=== PATIENT | male | born 1935 | race Two or more races ===

== ENCOUNTER 2017-05-02 08:04 | Emergency (ER) | payer OTHER ==
[~2017-05-02] VITALS: Ht 154.9 cm; Wt 78.5 kg
[2017-05-02] MEDS ORDERED: SODIUM CHLORIDE 0.9% 1,000 ML IV ONE (08:24)
[2017-05-02] MEDS ORDERED: DOCUSATE SOD 100 MG CAP PO ONE (08:45)
[2017-05-02 09:11] LABS: Basophils # (auto) 0 uL; Basophils % (auto) 0.5 % (0.0-2.0); Eosinophils # (auto) 0.1 uL; Eosinophils % (auto) 0.6 % (0.0-7.0); Hematocrit 39.4 % (41.0-53.0); Hemoglobin 13.1 g/dL (13.5-17.5); Lymphocytes # (auto) 1.5 uL; Lymphocytes % (auto) 14.2 % (10.0-50.0); Mean Corpuscular Hemoglobin 28.1 pg (28.0-32.0); Mean Corpuscular Hgb Conc. 33.3 g/dL (32.0-36.0); Mean Corpuscular Volume 84.5 fL (80.0-100.0); Mean Platelet Volume 8.3 fL (6.9-10.8); Monocytes # (auto) 1.4 uL; Monocytes % (auto) 13.3 % (0.0-12.0); Neutrophils # (auto) 7.4 uL; Neutrophils % (auto) 71.4 % (37.0-80.0); Platelet Count (auto) 202 10^3/uL (140-450); Red Cell Distribution Width 14.5 % (11.8-14.3); White Blood Cell 10.3 10^3/uL (4.4-10.8)
[2017-05-02 09:27] LABS: INR 0.97 (0.9-1.15); Partial Thromboplastin Time 30.4 sec (22.64-33.71); Prothrombin Time 10.6 sec (9.37-12.3)
[2017-05-02 09:28] LABS: Albumin 3.2 g/dL (3.4-5.0); Anion Gap 6 (5-15); Aspartate Aminotransferase 13 U/L (15-37); BUN/Creatinine Ratio 21.7; Blood Urea Nitrogen 15 mg/dL (7-18); Calcium 8.1 mg/dL (8.5-10.1); Carbon Dioxide 29 mmol/L (21-32); Chloride 103 mmol/L (98-107); GFR African American 142 mL/min; GFR Non-African American 118 mL/min; Glucose 93 mg/dL (74-106); Potassium 3.7 mmol/L (3.5-5.1); Sodium 138 mmol/L (136-145)
[2017-05-02 09:36] LABS: Alkaline Phosphatase 76 U/L (45-117)
[2017-05-02 09:57] VITALS: BP 127/70
== END 2017-05-02 09:52 | disposition home or self-care (01) ==
LOC: ER 08:04
DX: K59.00 Constipation, unspecified (principal); I11.0 Hypertensive heart disease with heart failure; I50.9 Heart failure, unspecified; Z88.0 Allergy status to penicillin
CPT/HCPCS: 36415; 71010; 74176; 80053; 84484; 85025; 85610; 85730; 93005

== ENCOUNTER 2017-05-29 10:47 | Emergency (ER) | payer OTHER ==
[~2017-05-29] VITALS: Ht 154.9 cm; Wt 78.5 kg
[2017-05-29 11:36] VITALS: BP 113/68
== END 2017-05-29 12:07 | disposition home or self-care (01) ==
LOC: ER 10:47
DX: J20.9 Acute bronchitis, unspecified (principal); I11.0 Hypertensive heart disease with heart failure; I50.9 Heart failure, unspecified; E78.5 Hyperlipidemia, unspecified
CPT/HCPCS: 71020

== ENCOUNTER 2017-06-15 10:39 | Inpatient (IN) | payer OTHER ==
[~2017-06-15] VITALS: Ht 154.9 cm; Wt 81.0 kg
[2017-06-15] MEDS ORDERED: IPRATROPIUM BROM 0.5 MG/2.5ML INH SOL HHN ONE (11:00)
[2017-06-15] MEDS ORDERED: ALBUTEROL SULF 2.5 MG/0.5ML(0.5%) NEB SOLN HHN ONE (11:00)
[2017-06-15 11:15] LABS: Basophils # (auto) 0 uL; Basophils % (auto) 0.5 % (0.0-2.0); Eosinophils # (auto) 0.6 uL; Eosinophils % (auto) 8.4 % (0.0-7.0); Hematocrit 40.8 % (41.0-53.0); Hemoglobin 13.1 g/dL (13.5-17.5); Lymphocytes % (auto) 28.1 % (10.0-50.0); Mean Corpuscular Hgb Conc. 32.1 g/dL (32.0-36.0); Monocytes # (auto) 0.6 uL; Monocytes % (auto) 8.9 % (0.0-12.0); Neutrophils # (auto) 3.9 uL; Neutrophils % (auto) 54.1 % (37.0-80.0); Nucleated Red Blood Cells % 0.1 %; Platelet Count (auto) 309 10^3/uL (140-450); Red Blood Cells 4.86 10^6/uL (4.5-5.90); Red Cell Distribution Width 15.1 % (11.8-14.3); White Blood Cell 7.1 10^3/uL (4.4-10.8)
[2017-06-15] MEDS ORDERED: methylPREDNISolone SOD SUCC 125 MG/2 ML VL IV ONE (11:15)
[2017-06-15 11:35] LABS: Alanine Aminotransferase 20 U/L (16-61); Albumin 3.5 g/dL (3.4-5.0); Alkaline Phosphatase 108 U/L (45-117); Anion Gap 11 (5-15); Aspartate Aminotransferase 14 U/L (15-37); BUN/Creatinine Ratio 23.9; Bilirubin, Total 0.4 mg/dL (0.2-1.0); Blood Urea Nitrogen 21 mg/dL (7-18); Calcium 8.2 mg/dL (8.5-10.1); Carbon Dioxide 26 mmol/L (21-32); Chloride 102 mmol/L (98-107); GFR African American 107 mL/min; GFR Non-African American 89 mL/min; Glucose 132 mg/dL (74-106); Magnesium 1.9 mg/dL (1.6-2.6); Sodium 139 mmol/L (136-145); Total Protein 7.7 g/dL (6.4-8.2)
[2017-06-15] MEDS ORDERED: NITROGLYCERIN 0.4 MG SL TAB SL PRN (12:15)
[2017-06-15] MEDS ORDERED: AZITHROMYCIN 500MG/ 250ML 250 ML IV ONE ×2 (12:15→12:18)
[2017-06-15] MEDS ORDERED: cefTRIAXone 1GM/50ML D5W 50 ML IV ONE (12:15)
[2017-06-15] MEDS ORDERED: MORPHINE SULFATE 10 MG/ML INJ 1ML SDV IV PRN (12:15)
[2017-06-15] MEDS: SODIUM CHLORIDE 0.9% 1,000 ML IV SCH (12:59)
[2017-06-15] MEDS: IPRATROPIUM BROM 0.5 MG/2.5ML INH SOL NEB SCH ×3 (14:08→22:17)
[2017-06-15] MEDS: ALBUTEROL SULF 2.5 MG/0.5ML(0.5%) NEB SOLN NEB SCH ×3 (14:09→22:17)
[2017-06-15 14:20] VITALS: BP 139/61
[2017-06-15] MEDS ORDERED: IOHEXOL 350 MG/ML 100ML IJ ONE (15:43)
[2017-06-15 17:15] VITALS: BP 149/99
[2017-06-15 18:57] VITALS: BP 149/99
[2017-06-15] MEDS: methylPREDNISolone SOD SUCC 40 MG/ML VL IV SCH (19:05)
[2017-06-15 20:00] VITALS: BP 139/78
[2017-06-15 22:00] VITALS: BP 139/78
[2017-06-16] MEDS: methylPREDNISolone SOD SUCC 40 MG/ML VL IV SCH ×2 (02:20→10:52)
[2017-06-16] MEDS: IPRATROPIUM BROM 0.5 MG/2.5ML INH SOL NEB SCH ×3 (02:27→10:15)
[2017-06-16] MEDS: ALBUTEROL SULF 2.5 MG/0.5ML(0.5%) NEB SOLN NEB SCH ×3 (02:27→10:15)
[2017-06-16 05:45] VITALS: BP 149/89
[2017-06-16 06:07] LABS: Basophils # (auto) 0 uL; Basophils % (auto) 0.1 % (0.0-2.0); Eosinophils # (auto) 0 uL; Hematocrit 38.8 % (41.0-53.0); Hemoglobin 12.4 g/dL (13.5-17.5); Lymphocytes # (auto) 0.9 uL; Lymphocytes % (auto) 6.8 % (10.0-50.0); Mean Corpuscular Hemoglobin 26.6 pg (28.0-32.0); Mean Corpuscular Hgb Conc. 32.1 g/dL (32.0-36.0); Mean Corpuscular Volume 83.1 fL (80.0-100.0); Monocytes # (auto) 0.4 uL; Monocytes % (auto) 2.8 % (0.0-12.0); Neutrophils # (auto) 11.8 uL; Neutrophils % (auto) 90.3 % (37.0-80.0); Platelet Count (auto) 309 10^3/uL (140-450); Red Blood Cells 4.67 10^6/uL (4.5-5.90); Red Cell Distribution Width 14.8 % (11.8-14.3)
[2017-06-16 06:22] LABS: BUN/Creatinine Ratio 27.7; Calcium 8.7 mg/dL (8.5-10.1)
[2017-06-16] MEDS: SODIUM CHLORIDE 0.9% 1,000 ML IV SCH (06:57)
[2017-06-16 08:00] VITALS: BP 146/89
[2017-06-16 09:00] VITALS: BP 146/89
[2017-06-16 09:59] VITALS: BP 146/89
[2017-06-16] MEDS ORDERED: cefTRIAXone 1GM/50ML D5W 50 ML IV SCH (10:00)
[2017-06-16] MEDS ORDERED: AZITHROMYCIN 500MG/ 250ML 250 ML IV SCH (10:00)
[2017-06-16 13:00] VITALS: BP 149/81
== END 2017-06-16 15:35 | disposition home or self-care (01) | DRG 203 ==
LOC: ER 10:39 → TELE 10:40 → TELE-WESTW 17:25
PROVIDERS: ADMIT Internal Medicine; ATTEND Internal Medicine
DX: J20.9 Acute bronchitis, unspecified (principal); I11.0 Hypertensive heart disease with heart failure; I50.9 Heart failure, unspecified; J44.9 Chronic obstructive pulmonary disease, unspecified; E78.5 Hyperlipidemia, unspecified; K21.9 Gastro-esophageal reflux disease without esophagitis; I70.8 Atherosclerosis of other arteries
CPT/HCPCS: 36415; 71010; 71275; 80048; 80053; 83735; 83880; 84484; 85025; 93005; 94640; 94644; 94761; 96365; 96366; 96375; J0696

== ENCOUNTER 2018-11-08 12:48 | Inpatient (IN) | payer OTHER ==
[~2018-11-08] VITALS: Ht 170.2 cm; Wt 93.0 kg
[2018-11-08 14:04] LABS: Basophils # (auto) 0 uL; Basophils % (auto) 0.2 % (0.0-2.0); Eosinophils # (auto) 0 uL; Eosinophils % (auto) 0.1 % (0.0-7.0); Lymphocytes # (auto) 0.8 uL
[2018-11-08 14:05] LABS: Hematocrit 31.8 % (41.0-53.0); Hemoglobin 10.1 g/dL (13.5-17.5); Lymphocytes % (auto) 4.8 % (10.0-50.0); Mean Corpuscular Hemoglobin 26.7 pg (28.0-32.0); Mean Corpuscular Hgb Conc. 31.8 g/dL (32.0-36.0); Monocytes % (auto) 11.6 % (0.0-12.0); Neutrophils # (auto) 14.1 uL; Neutrophils % (auto) 83.3 % (37.0-80.0); Platelet Count (auto) 498 10^3/uL (140-450); Red Blood Cells 3.79 10^6/uL (4.5-5.90); Red Cell Distribution Width 14.5 % (11.8-14.3); White Blood Cell 16.9 10^3/uL (4.4-10.8)
[2018-11-08 14:19] LABS: Calcium 7.7 mg/dL (8.5-10.1); Magnesium 2.1 mg/dL (1.6-2.6); Potassium 4.3 mmol/L (3.5-5.1)
[2018-11-08 14:25] LABS: Bilirubin, Total 0.3 mg/dL (0.2-1.0); Total Protein 6.7 g/dL (6.4-8.2)
[2018-11-08 15:43] LABS: INR 1.19 (0.9-1.15); Partial Thromboplastin Time 35.9 sec (23.78-33.04); Prothrombin Time 12.6 sec (9.27-12.13)
[2018-11-08] MEDS ORDERED: IOHEXOL 350 MG/ML 100ML IJ ONE (16:14)
[2018-11-08] MEDS ORDERED: cefTRIAXone 1GM/50ML D5W 50 ML IV ONE (16:15)
[2018-11-08 16:30] LABS: Urine Bacteria NONE SEEN /hpf (None Seen); Urine Blood Negative /uL (Negative); Urine Specific Gravity 1.023 (1.001-1.035); Urine WBC 1 /hpf (0 - 3)
[2018-11-08] MEDS ORDERED: SODIUM CHLORIDE 0.9% 1,000 ML IV ONE (16:45)
[2018-11-08] MEDS ORDERED: NITROGLYCERIN 0.4 MG SL TAB SL PRN (17:00)
[2018-11-08] MEDS ORDERED: VANCOMYCIN PER PHARMACY 0 MG IV SCH (17:00)
[2018-11-08] MEDS ORDERED: FUROSEMIDE 40 MG/4 ML VIAL IV ONE (17:15)
[2018-11-08] MEDS: ACETAMINOPHEN 650 MG RECT SUPP PR PRN ×2 (18:11→20:30)
[2018-11-08] MEDS ORDERED: ETOMIDATE (2MG/ML) 20ML VIAL IV ONE (18:30)
[2018-11-08] MEDS ORDERED: SUCCINYLCHOLINE CHLORIDE 20 MG/ML 10ML VIAL IV ONE ×2 (18:30→18:32)
[2018-11-08] MEDS ORDERED: MIDAZOLAM DRIP 50 mg/50mL 50 ML IV ONE (19:02)
[2018-11-08 19:33] VITALS: BP 95/58
[2018-11-08] MEDS: MIDAZOLAM DRIP 50 mg/50mL 50 ML IV SCH (19:35)
[2018-11-08] MEDS: VANCOMYCIN 1,250 MG in D5W 5% 250 ML IV SCH (19:38)
[2018-11-08 22:05] VITALS: BP 81/46
[2018-11-08] MEDS ORDERED: NOREPINEPHRINE 8 MG/250ML KIT 250 ML IV STA (22:19)
[2018-11-08 23:35] VITALS: BP 92/54
[2018-11-09] VITALS (11 sets, daily range): BP systolic 91–117; BP diastolic 57–69
[2018-11-09] MEDS: ACETAMINOPHEN 650 MG RECT SUPP PR PRN (04:39)
[2018-11-09 05:55] LABS: Eosinophils # (auto) 0.1 uL; Hemoglobin 9.9 g/dL (13.5-17.5); Mean Corpuscular Volume 84.5 fL (80.0-100.0); Monocytes # (auto) 1.5 uL; Nucleated Red Blood Cells % 0.1 %
[2018-11-09] MEDS: MIDAZOLAM DRIP 50 mg/50mL 50 ML IV SCH (05:55)
[2018-11-09 06:00] LABS: Basophils # (auto) 0 uL; Basophils % (auto) 0.1 % (0.0-2.0); Eosinophils % (auto) 0.7 % (0.0-7.0); Hematocrit 31.3 % (41.0-53.0); Lymphocytes # (auto) 1.3 uL; Mean Corpuscular Hemoglobin 26.7 pg (28.0-32.0); Mean Corpuscular Hgb Conc. 31.6 g/dL (32.0-36.0); Monocytes % (auto) 8.4 % (0.0-12.0); Neutrophils # (auto) 15.2 uL; Neutrophils % (auto) 83.8 % (37.0-80.0); Platelet Count (auto) 485 10^3/uL (140-450); Red Cell Distribution Width 14.7 % (11.8-14.3); White Blood Cell 18.1 10^3/uL (4.4-10.8)
[2018-11-09 06:13] LABS: Calcium 7.6 mg/dL (8.5-10.1); Potassium 3.4 mmol/L (3.5-5.1)
[2018-11-09] MEDS ORDERED: LEVOFLOXACIN 500MG 100 ML IV ONE ×2 (10:00→11:45)
[2018-11-09] MEDS: VANCOMYCIN 1,250 MG in D5W 5% 250 ML IV SCH (12:59)
[2018-11-09] MEDS ORDERED: ACETAMINOPHEN 650 mg PER 20 mL UD PO ONE (14:30)
[2018-11-10] VITALS (21 sets, daily range): BP systolic 68–133; BP diastolic 44–87
[2018-11-10] MEDS: MIDAZOLAM DRIP 50 mg/50mL 50 ML IV SCH ×2 (01:14→22:56)
[2018-11-10] MEDS: VANCOMYCIN 1,250 MG in D5W 5% 250 ML IV SCH (06:00)
[2018-11-10] MEDS ORDERED: NOREPINEPHRINE 8 MG/250ML KIT 250 ML IV ONE (06:26)
[2018-11-10 07:32] LABS: Potassium 3.9 mmol/L (3.5-5.1)
[2018-11-10 07:39] LABS: BUN/Creatinine Ratio 21.4; Calcium 7.2 mg/dL (8.5-10.1)
[2018-11-10 07:44] LABS: Hematocrit 33.5 % (41.0-53.0); Hemoglobin 10.7 g/dL (13.5-17.5); Mean Corpuscular Hemoglobin 26.4 pg (28.0-32.0); Mean Corpuscular Volume 82.6 fL (80.0-100.0); Platelet Count (auto) 414 10^3/uL (140-450); Red Blood Cells 4.05 10^6/uL (4.5-5.90); Red Cell Distribution Width 14.7 % (11.8-14.3)
[2018-11-10 07:48] LABS: White Blood Cell 30.4 10^3/uL (4.4-10.8)
[2018-11-10 07:50] LABS: Basophils % (manual) 0 (0.0-2.0); Blast Cells 0; Eosinophils % (manual) 0 (0-7); Metamyelocytes % 0; Myelocytes % 0; Promyelocytes % 0; Reactive Lymphocytes 0
[2018-11-10] MEDS: NOREPINEPHRINE 8 MG/250ML KIT 250 ML IV SCH (08:00)
[2018-11-10] MEDS ORDERED: CEFEPIME HYDROCHLORIDE 1 GM in D5W 5% 50 ML IV ONE (09:00)
[2018-11-10] MEDS: ACETAMINOPHEN 650 mg PER 20 mL UD PO PRN ×2 (09:16→17:57)
[2018-11-10 09:49] LABS: Band Neutrophils % (manual) 8; Lymphocytes % (manual) 7 (10.0-50.0); Monocytes % (manual) 12 (0-12)
[2018-11-10] MEDS ORDERED: LEVOFLOXACIN 500MG 100 ML IV SCH (10:00)
[2018-11-10] MEDS: LEVOFLOXACIN 500MG 100 ML IV SCH (10:42)
[2018-11-10] MEDS ORDERED: ENOXAPARIN SOD 40 MG/0.4 ML SYRINGE SC ONE (11:30)
[2018-11-10] MEDS ORDERED: SODIUM CHLORIDE 0.9% 2,450 ML IV ONE (11:30)
[2018-11-10] MEDS: ENOXAPARIN SOD 40 MG/0.4 ML SYRINGE SC SCH (11:43)
[2018-11-10] MEDS: IPRATROPIUM BROM 0.5 MG/2.5ML INH SOL NEB SCH ×2 (11:58→21:31)
[2018-11-10] MEDS: ALBUTEROL SULF 2.5 MG/0.5ML(0.5%) NEB SOLN NEB SCH ×2 (11:58→21:32)
[2018-11-10] MEDS ORDERED: CEFEPIME HYDROCHLORIDE 1 GM in D5W 5% 50 ML IV SCH ×2 (12:00→14:00)
[2018-11-10] MEDS: FUROSEMIDE 40 MG/4 ML VIAL IV SCH (12:02)
[2018-11-10] MEDS: metroNIDAZOLE 500MG/100ML 100 ML IV SCH ×2 (12:06→18:18)
[2018-11-10] MEDS: VANCOMYCIN HCL 500MG/5ML ORAL SOL GT SCH ×2 (12:57→18:34)
[2018-11-10 13:19] LABS: Hemoglobin 11.2 g/dL (13.5-17.5); Mean Corpuscular Volume 84.2 fL (80.0-100.0)
[2018-11-10 13:22] LABS: Hematocrit 35.3 % (41.0-53.0); Mean Corpuscular Hemoglobin 26.6 pg (28.0-32.0); Mean Corpuscular Hgb Conc. 31.6 g/dL (32.0-36.0); Platelet Count (auto) 409 10^3/uL (140-450); Red Blood Cells 4.19 10^6/uL (4.5-5.90); White Blood Cell 24.7 10^3/uL (4.4-10.8)
[2018-11-10 13:35] LABS: Basophils % (manual) 0 (0.0-2.0); Blast Cells 0; Eosinophils % (manual) 0 (0-7); Metamyelocytes % 0; Myelocytes % 0; Promyelocytes % 0; Reactive Lymphocytes 0
[2018-11-10 13:38] LABS: BUN/Creatinine Ratio 20.7; Calcium 7.6 mg/dL (8.5-10.1)
[2018-11-10 13:40] LABS: Lactic Acid w/Reflex 2.3 mmol/L (0.4-2.0)
[2018-11-10] MEDS: SODIUM CHLORIDE 0.9% 1,000 ML IV SCH ×3 (15:32→21:35)
[2018-11-10 18:07] LABS: Band Neutrophils % (manual) 5; Lymphocytes % (manual) 7 (10.0-50.0); Monocytes % (manual) 8 (0-12)
[2018-11-11] VITALS (97 sets, daily range): BP systolic 77–141; BP diastolic 38–98
[2018-11-11] MEDS: IPRATROPIUM BROM 0.5 MG/2.5ML INH SOL NEB SCH ×4 (00:50→17:53)
[2018-11-11] MEDS: ALBUTEROL SULF 2.5 MG/0.5ML(0.5%) NEB SOLN NEB SCH ×4 (00:50→17:53)
[2018-11-11] MEDS: metroNIDAZOLE 500MG/100ML 100 ML IV SCH ×4 (00:57→18:00)
[2018-11-11] MEDS: VANCOMYCIN HCL 500MG/5ML ORAL SOL GT SCH ×4 (00:57→18:00)
[2018-11-11] MEDS: VANCOMYCIN 1,250 MG in D5W 5% 250 ML IV SCH ×2 (00:58→12:22)
[2018-11-11] MEDS: NOREPINEPHRINE 8 MG/250ML KIT 250 ML IV SCH ×3 (02:21→16:12)
[2018-11-11] MEDS: MIDAZOLAM DRIP 50 mg/50mL 50 ML IV SCH ×2 (03:01→21:32)
[2018-11-11] MEDS: ACETAMINOPHEN 650 mg PER 20 mL UD PO PRN ×3 (03:02→16:17)
[2018-11-11 04:00] LABS: Albumin 1.5 g/dL (3.4-5.0)
[2018-11-11 04:03] LABS: BUN/Creatinine Ratio 20.3; Bilirubin, Total 0.6 mg/dL (0.2-1.0); Total Protein 5.7 g/dL (6.4-8.2)
[2018-11-11 04:06] LABS: Hematocrit 31.7 % (41.0-53.0); Mean Corpuscular Hemoglobin 26.6 pg (28.0-32.0); Mean Corpuscular Hgb Conc. 31.7 g/dL (32.0-36.0); Platelet Count (auto) 395 10^3/uL (140-450); Red Blood Cells 3.77 10^6/uL (4.5-5.90); Red Cell Distribution Width 14.8 % (11.8-14.3)
[2018-11-11 04:23] LABS: Potassium 2.6 mmol/L (3.5-5.1)
[2018-11-11 04:24] LABS: Basophils % (manual) 0 (0.0-2.0); Blast Cells 0; Metamyelocytes % 0; Myelocytes % 0; Promyelocytes % 0; Reactive Lymphocytes 0; White Blood Cell 33.3 10^3/uL (4.4-10.8)
[2018-11-11 06:48] LABS: Band Neutrophils % (manual) 15; Eosinophils % (manual) 1 (0-7); Lymphocytes % (manual) 2 (10.0-50.0); Monocytes % (manual) 4 (0-12)
[2018-11-11] MEDS: SODIUM CHLORIDE 0.9% 1,000 ML IV SCH ×3 (07:30→12:22)
[2018-11-11] MEDS: ENOXAPARIN SOD 40 MG/0.4 ML SYRINGE SC SCH ×2 (10:00)
[2018-11-11] MEDS: LEVOFLOXACIN 500MG 100 ML IV SCH (10:00)
[2018-11-11] MEDS: FUROSEMIDE 40 MG/4 ML VIAL IV SCH (10:00)
[2018-11-11] MEDS ORDERED: POTASSIUM CHLORIDE 40 MEQ, LIDOCAINE 1% (LOCAL ANESTH.) 4 ML in SODIUM CHL 0.9% 100 ML IV ONE (10:30)
[2018-11-11] MEDS: MAGNESIUM SULFATE 1GM/100ML 100 ML IV SCH ×4 (11:00→14:00)
[2018-11-11] MEDS ORDERED: OPTISON 3ml Vial for INJ IV ONE ×2 (14:12→14:45)
[2018-11-11] MEDS: MORPHINE SULF INJ 2 MG/ML SYRINGE 1ML IV PRN (21:34)
[2018-11-12] VITALS (99 sets, daily range): BP systolic 91–170; BP diastolic 42–103
[2018-11-12] MEDS: ALBUTEROL SULF 2.5 MG/0.5ML(0.5%) NEB SOLN NEB SCH ×4 (00:12→18:14)
[2018-11-12] MEDS: IPRATROPIUM BROM 0.5 MG/2.5ML INH SOL NEB SCH ×4 (00:12→18:14)
[2018-11-12] MEDS: VANCOMYCIN 1,250 MG in D5W 5% 250 ML IV SCH ×2 (00:40→13:00)
[2018-11-12 04:01] LABS: Hemoglobin 9.9 g/dL (13.5-17.5)
[2018-11-12 04:05] LABS: Hematocrit 30.9 % (41.0-53.0); Mean Corpuscular Hemoglobin 26.8 pg (28.0-32.0); Mean Corpuscular Volume 83.8 fL (80.0-100.0); Platelet Count (auto) 332 10^3/uL (140-450); Red Blood Cells 3.69 10^6/uL (4.5-5.90); Red Cell Distribution Width 14.9 % (11.8-14.3)
[2018-11-12 04:42] LABS: White Blood Cell 37.7 10^3/uL (4.4-10.8)
[2018-11-12 04:43] LABS: Basophils % (manual) 0 (0.0-2.0); Blast Cells 0; Eosinophils % (manual) 0 (0-7); Myelocytes % 0; Promyelocytes % 0; Reactive Lymphocytes 0
[2018-11-12 04:52] LABS: BUN/Creatinine Ratio 18.3
[2018-11-12 05:26] LABS: Potassium 2.5 mmol/L (3.5-5.1)
[2018-11-12 05:44] LABS: Band Neutrophils % (manual) 13; Lymphocytes % (manual) 2 (10.0-50.0); Metamyelocytes % 1; Monocytes % (manual) 4 (0-12)
[2018-11-12] MEDS: metroNIDAZOLE 500MG/100ML 100 ML IV SCH ×4 (06:00→17:53)
[2018-11-12] MEDS: VANCOMYCIN HCL 500MG/5ML ORAL SOL GT SCH ×4 (06:00→17:53)
[2018-11-12] MEDS ORDERED: POTASSIUM CHLORIDE 40 MEQ, LIDOCAINE 1% (LOCAL ANESTH.) 4 ML in SODIUM CHL 0.9% 100 ML IV ONE (06:55)
[2018-11-12] MEDS: NOREPINEPHRINE 8 MG/250ML KIT 250 ML IV SCH (09:13)
[2018-11-12] MEDS: SODIUM CHLORIDE 0.9% 1,000 ML IV SCH ×2 (09:15→10:25)
[2018-11-12] MEDS: MORPHINE SULF INJ 2 MG/ML SYRINGE 1ML IV PRN ×3 (09:22→18:51)
[2018-11-12] MEDS: FUROSEMIDE 40 MG/4 ML VIAL IV SCH (10:25)
[2018-11-12] MEDS: ENOXAPARIN SOD 40 MG/0.4 ML SYRINGE SC SCH (10:25)
[2018-11-12] MEDS ORDERED: PANTOPRAZOLE 40 MG/10 ML VIAL IV ONE (12:45)
[2018-11-12] MEDS ORDERED: FUROSEMIDE 40 MG/4 ML VIAL IV ONE (13:30)
[2018-11-12] MEDS ORDERED: TPN PER PHARMACY 0 ML IV SCH (13:30)
[2018-11-12] MEDS ORDERED: IOHEXOL 300 MG/ML 100ML BOTTLE IJ ONE (14:04)
[2018-11-12] MEDS: POTASSIUM CHL 20MEQ/100ML 100 ML IV SCH ×2 (15:30→17:13)
[2018-11-12] MEDS ORDERED: POTASSIUM PHOSPHATE 22 MEQ in SODIUM CHL 0.9% 100 ML IV ONE (15:30)
[2018-11-12] MEDS ORDERED: PHENYLEPHRINE IV 0 ML IV ONE (16:32)
[2018-11-12] MEDS: CLINIMIX PER PHARMACY IV NR (20:00)
[2018-11-12] MEDS ORDERED: DEXTROSE (50%) 50ML SYRG IV SCH (20:00)
[2018-11-12] MEDS: InsuLIN REG 1unit/0.01ml Soln (100units/ml) SC SCH (22:30)
[2018-11-12] MEDS: ACCU-CHEK COMFORT CURVE STRIP VI SCH (22:30)
[2018-11-12] MEDS: ACETAMINOPHEN 650 mg PER 20 mL UD PO PRN (22:40)
[2018-11-13] VITALS (105 sets, daily range): BP systolic 81–140; BP diastolic 43–100
[2018-11-13] MEDS: ALBUTEROL SULF 2.5 MG/0.5ML(0.5%) NEB SOLN NEB SCH ×4 (00:20→18:18)
[2018-11-13] MEDS: metroNIDAZOLE 500MG/100ML 100 ML IV SCH ×4 (01:00→18:00)
[2018-11-13] MEDS: InsuLIN REG 1unit/0.01ml Soln (100units/ml) SC SCH ×4 (01:00→18:00)
[2018-11-13] MEDS: VANCOMYCIN HCL 500MG/5ML ORAL SOL GT SCH ×5 (01:00→22:28)
[2018-11-13] MEDS: ACCU-CHEK COMFORT CURVE STRIP VI SCH ×4 (01:00→18:00)
[2018-11-13] MEDS: VANCOMYCIN 1,250 MG in D5W 5% 250 ML IV SCH ×2 (02:00→12:57)
[2018-11-13] MEDS: MORPHINE SULF INJ 2 MG/ML SYRINGE 1ML IV PRN (02:43)
[2018-11-13 05:25] LABS: Hemoglobin 9.9 g/dL (13.5-17.5)
[2018-11-13 05:26] LABS: Hematocrit 30.8 % (41.0-53.0); Mean Corpuscular Hemoglobin 26.8 pg (28.0-32.0); Mean Corpuscular Volume 83.7 fL (80.0-100.0); Platelet Count (auto) 323 10^3/uL (140-450); Red Blood Cells 3.68 10^6/uL (4.5-5.90)
[2018-11-13 05:37] LABS: Albumin 1.4 g/dL (3.4-5.0); Calcium 7.2 mg/dL (8.5-10.1); Magnesium 2.1 mg/dL (1.6-2.6)
[2018-11-13 05:44] LABS: BUN/Creatinine Ratio 20.8; Bilirubin, Total 0.4 mg/dL (0.2-1.0); Phosphorus 2.2 mg/dL (2.5-4.90); Pre Albumin 3.3 mg/dL (20.0-40.0); Total Protein 5.2 g/dL (6.4-8.2)
[2018-11-13 05:49] LABS: Potassium 2.9 mmol/L (3.5-5.1); White Blood Cell 30.1 10^3/uL (4.4-10.8)
[2018-11-13 05:50] LABS: Basophils % (manual) 0 (0.0-2.0); Blast Cells 0; Eosinophils % (manual) 0 (0-7); Metamyelocytes % 0; Myelocytes % 0; Promyelocytes % 0; Reactive Lymphocytes 0
[2018-11-13] MEDS: IPRATROPIUM BROM 0.5 MG/2.5ML INH SOL NEB SCH ×3 (06:15→18:18)
[2018-11-13 06:52] LABS: Band Neutrophils % (manual) 8; Lymphocytes % (manual) 2 (10.0-50.0); Monocytes % (manual) 5 (0-12)
[2018-11-13] MEDS: POTASSIUM CHL 20MEQ/100ML 100 ML IV SCH ×3 (07:58→10:22)
[2018-11-13] MEDS: ACETAMINOPHEN 650 mg PER 20 mL UD PO PRN (08:52)
[2018-11-13] MEDS: PANTOPRAZOLE 40 MG/10 ML VIAL IV SCH (09:48)
[2018-11-13] MEDS: FUROSEMIDE 40 MG/4 ML VIAL IV SCH (09:48)
[2018-11-13] MEDS: ENOXAPARIN SOD 40 MG/0.4 ML SYRINGE SC SCH (09:49)
[2018-11-13] MEDS: PROPOFOL 100 ML IV SCH (11:23)
[2018-11-13] MEDS: MIDAZOLAM DRIP 50 mg/50mL 50 ML IV SCH (12:26)
[2018-11-13] MEDS ORDERED: POTASSIUM PHOSP 22MEQ(15MMOLE) in NS 100 ML IV ONE (14:00)
[2018-11-13] MEDS: AZTREONAM 1GM INJ 1 GM in D5W 5% 50 ML IV SCH ×2 (14:18→22:00)
[2018-11-13] MEDS: CLINIMIX PER PHARMACY IV NR (19:49)
[2018-11-13] MEDS ORDERED: FAT EMULSION IV NR ×10 (20:00)
[2018-11-13] MEDS ORDERED: POTASSIUM ACETATE IV NR ×10 (20:00)
[2018-11-13] MEDS ORDERED: POTASSIUM PHOSPHATE IV NR ×10 (20:00)
[2018-11-13] MEDS ORDERED: [UNRECOGNIZED DRUG - OTHER] IV NR ×10 (20:00)
[2018-11-14] VITALS (106 sets, daily range): BP systolic 80–141; BP diastolic 35–111
[2018-11-14] MEDS: IPRATROPIUM BROM 0.5 MG/2.5ML INH SOL NEB SCH ×5 (00:19→23:58)
[2018-11-14] MEDS: ALBUTEROL SULF 2.5 MG/0.5ML(0.5%) NEB SOLN NEB SCH ×5 (00:19→23:58)
[2018-11-14] MEDS: VANCOMYCIN 1,250 MG in D5W 5% 250 ML IV SCH ×2 (01:00→13:59)
[2018-11-14 03:42] LABS: Red Cell Distribution Width 15.4 % (11.8-14.3)
[2018-11-14 03:45] LABS: Hematocrit 29.9 % (41.0-53.0); Hemoglobin 9.6 g/dL (13.5-17.5); Mean Corpuscular Hemoglobin 26.8 pg (28.0-32.0); Mean Corpuscular Hgb Conc. 32.2 g/dL (32.0-36.0); Platelet Count (auto) 328 10^3/uL (140-450); White Blood Cell 23.9 10^3/uL (4.4-10.8)
[2018-11-14 03:52] LABS: Band Neutrophils % (manual) 0; Basophils % (manual) 0 (0.0-2.0); Blast Cells 0; Eosinophils % (manual) 0 (0-7); Metamyelocytes % 0; Myelocytes % 0; Promyelocytes % 0; Reactive Lymphocytes 0
[2018-11-14 04:02] LABS: Calcium 7.3 mg/dL (8.5-10.1); Potassium 3.1 mmol/L (3.5-5.1)
[2018-11-14 04:08] LABS: Albumin 1.4 g/dL (3.4-5.0); BUN/Creatinine Ratio 29.7; Bilirubin, Total 0.3 mg/dL (0.2-1.0); Phosphorus 2.5 mg/dL (2.5-4.90); Total Protein 5.2 g/dL (6.4-8.2)
[2018-11-14] MEDS: AZTREONAM 1GM INJ 1 GM in D5W 5% 50 ML IV SCH ×3 (05:40→22:00)
[2018-11-14] MEDS: ACCU-CHEK COMFORT CURVE STRIP VI SCH ×4 (05:41→17:37)
[2018-11-14] MEDS: InsuLIN REG 1unit/0.01ml Soln (100units/ml) SC SCH ×4 (05:41→17:37)
[2018-11-14] MEDS: metroNIDAZOLE 500MG/100ML 100 ML IV SCH ×4 (06:19→17:42)
[2018-11-14] MEDS: NOREPINEPHRINE 8 MG/250ML KIT 250 ML IV SCH (08:00)
[2018-11-14 08:55] LABS: Lymphocytes % (manual) 7 (10.0-50.0); Monocytes % (manual) 5 (0-12)
[2018-11-14] MEDS: FUROSEMIDE 40 MG/4 ML VIAL IV SCH (10:39)
[2018-11-14] MEDS: ENOXAPARIN SOD 40 MG/0.4 ML SYRINGE SC SCH (10:40)
[2018-11-14] MEDS: PANTOPRAZOLE 40 MG/10 ML VIAL IV SCH (10:40)
[2018-11-14] MEDS: ACETAMINOPHEN 650 mg PER 20 mL UD PO PRN ×2 (10:40→18:50)
[2018-11-14] MEDS: POTASSIUM CHL 20MEQ/100ML 100 ML IV SCH ×3 (10:40→22:00)
[2018-11-14] MEDS: PROPOFOL 100 ML IV SCH (11:23)
[2018-11-14] MEDS: VANCOMYCIN HCL 500MG/5ML ORAL SOL GT SCH ×3 (12:25→17:42)
[2018-11-14] MEDS: MIDAZOLAM DRIP 50 mg/50mL 50 ML IV SCH (18:59)
[2018-11-14] MEDS ORDERED: TPN PER PHARMACY IV NR ×10 (20:00)
[2018-11-15] VITALS (105 sets, daily range): BP systolic 71–148; BP diastolic 32–110
[2018-11-15] MEDS: POTASSIUM CHL 20MEQ/100ML 100 ML IV SCH
[2018-11-15] MEDS: VANCOMYCIN 1,250 MG in D5W 5% 250 ML IV SCH ×2 (01:00→12:43)
[2018-11-15 05:06] LABS: Basophils # (auto) 0 uL; Eosinophils # (auto) 0.4 uL; Eosinophils % (auto) 1.9 % (0.0-7.0); Hemoglobin 9.5 g/dL (13.5-17.5); Mean Corpuscular Hemoglobin 26.5 pg (28.0-32.0); Mean Corpuscular Hgb Conc. 32.2 g/dL (32.0-36.0)
[2018-11-15 05:07] LABS: Basophils % (auto) 0.1 % (0.0-2.0); Hematocrit 29.4 % (41.0-53.0); Lymphocytes % (auto) 5.3 % (10.0-50.0); Mean Corpuscular Volume 82.4 fL (80.0-100.0); Monocytes # (auto) 1.4 uL; Monocytes % (auto) 7.2 % (0.0-12.0); Neutrophils # (auto) 16.6 uL; Neutrophils % (auto) 85.5 % (37.0-80.0); Platelet Count (auto) 337 10^3/uL (140-450); Red Blood Cells 3.56 10^6/uL (4.5-5.90); Red Cell Distribution Width 15.3 % (11.8-14.3); White Blood Cell 19.4 10^3/uL (4.4-10.8)
[2018-11-15 05:27] LABS: Albumin 1.4 g/dL (3.4-5.0); BUN/Creatinine Ratio 30.4; Calcium 7.1 mg/dL (8.5-10.1); Magnesium 1.9 mg/dL (1.6-2.6); Potassium 3.6 mmol/L (3.5-5.1)
[2018-11-15 05:30] LABS: Bilirubin, Total 0.4 mg/dL (0.2-1.0); Phosphorus 2.9 mg/dL (2.5-4.90); Total Protein 5.1 g/dL (6.4-8.2)
[2018-11-15] MEDS: AZTREONAM 1GM INJ 1 GM in D5W 5% 50 ML IV SCH ×3 (05:33→21:55)
[2018-11-15] MEDS: InsuLIN REG 1unit/0.01ml Soln (100units/ml) SC SCH ×4 (06:00→17:32)
[2018-11-15] MEDS: ACCU-CHEK COMFORT CURVE STRIP VI SCH ×4 (06:00→17:32)
[2018-11-15] MEDS: VANCOMYCIN HCL 500MG/5ML ORAL SOL GT SCH ×4 (06:00→17:51)
[2018-11-15] MEDS: metroNIDAZOLE 500MG/100ML 100 ML IV SCH ×4 (06:20→17:51)
[2018-11-15] MEDS: ALBUTEROL SULF 2.5 MG/0.5ML(0.5%) NEB SOLN NEB SCH ×3 (07:43→18:41)
[2018-11-15] MEDS: IPRATROPIUM BROM 0.5 MG/2.5ML INH SOL NEB SCH ×3 (07:43→18:41)
[2018-11-15] MEDS: NOREPINEPHRINE 8 MG/250ML KIT 250 ML IV SCH (08:00)
[2018-11-15] MEDS ORDERED: POTASSIUM CHL 10% (20 MEQ/15ML) 15ml ORAL SOLN PO ONE (09:30)
[2018-11-15] MEDS: PANTOPRAZOLE 40 MG/10 ML VIAL IV SCH (09:51)
[2018-11-15] MEDS: ACETAMINOPHEN 650 mg PER 20 mL UD PO PRN ×2 (09:52→22:16)
[2018-11-15] MEDS: ENOXAPARIN SOD 40 MG/0.4 ML SYRINGE SC SCH (09:52)
[2018-11-15] MEDS: FUROSEMIDE 40 MG/4 ML VIAL IV SCH (09:52)
[2018-11-15] MEDS: PROPOFOL 100 ML IV SCH (11:23)
[2018-11-15] MEDS ORDERED: fentaNYL CITRATE 100 MCG/2 ML VL IV PRN (15:30)
[2018-11-15] MEDS: MIDAZOLAM DRIP 50 mg/50mL 50 ML IV SCH (18:59)
[2018-11-15] MEDS ORDERED: TPN PER PHARMACY IV NR ×22 (20:00)
[2018-11-15] MEDS ORDERED: DOBUTamine 1000MCG/ML 0 ML IV ONE (20:29)
[2018-11-16] VITALS (82 sets, daily range): BP systolic 37–131; BP diastolic 23–91
[2018-11-16] MEDS: IPRATROPIUM BROM 0.5 MG/2.5ML INH SOL NEB SCH ×4 (00:16→19:07)
[2018-11-16] MEDS: ALBUTEROL SULF 2.5 MG/0.5ML(0.5%) NEB SOLN NEB SCH ×4 (00:16→19:07)
[2018-11-16] MEDS: VANCOMYCIN 1,250 MG in D5W 5% 250 ML IV SCH ×2 (01:00→13:27)
[2018-11-16 04:25] LABS: Basophils # (auto) 0 uL; Eosinophils # (auto) 0.4 uL; Hemoglobin 8.9 g/dL (13.5-17.5)
[2018-11-16 04:32] LABS: Basophils % (auto) 0.2 % (0.0-2.0); Eosinophils % (auto) 2.3 % (0.0-7.0); Hematocrit 27.4 % (41.0-53.0); Lymphocytes % (auto) 6.1 % (10.0-50.0); Mean Corpuscular Hemoglobin 26.8 pg (28.0-32.0); Mean Corpuscular Hgb Conc. 32.5 g/dL (32.0-36.0); Mean Corpuscular Volume 82.5 fL (80.0-100.0); Monocytes # (auto) 1.4 uL; Monocytes % (auto) 8.1 % (0.0-12.0); Neutrophils # (auto) 14.2 uL; Neutrophils % (auto) 83.3 % (37.0-80.0); Nucleated Red Blood Cells % 0.1 %; Platelet Count (auto) 329 10^3/uL (140-450); Red Blood Cells 3.32 10^6/uL (4.5-5.90); Red Cell Distribution Width 15.2 % (11.8-14.3)
[2018-11-16 04:35] LABS: INR 1.12 (0.9-1.15); Partial Thromboplastin Time 29.3 sec (23.78-33.04); Prothrombin Time 11.9 sec (9.27-12.13)
[2018-11-16 04:45] LABS: Albumin 1.3 g/dL (3.4-5.0); Potassium 3.6 mmol/L (3.5-5.1)
[2018-11-16 04:49] LABS: BUN/Creatinine Ratio 30.8; Bilirubin, Total 0.4 mg/dL (0.2-1.0); Phosphorus 3.2 mg/dL (2.5-4.90); Total Protein 4.7 g/dL (6.4-8.2)
[2018-11-16] MEDS: InsuLIN REG 1unit/0.01ml Soln (100units/ml) SC SCH ×4 (06:00→18:00)
[2018-11-16] MEDS: VANCOMYCIN HCL 500MG/5ML ORAL SOL GT SCH ×4 (06:21→17:59)
[2018-11-16] MEDS: ACCU-CHEK COMFORT CURVE STRIP VI SCH ×4 (06:21→18:16)
[2018-11-16] MEDS: metroNIDAZOLE 500MG/100ML 100 ML IV SCH ×4 (06:21→17:59)
[2018-11-16] MEDS: AZTREONAM 1GM INJ 1 GM in D5W 5% 50 ML IV SCH ×3 (06:21→21:56)
[2018-11-16] MEDS: NOREPINEPHRINE 8 MG/250ML KIT 250 ML IV SCH (08:00)
[2018-11-16] MEDS: ACETAMINOPHEN 650 mg PER 20 mL UD PO PRN (09:46)
[2018-11-16] MEDS: PANTOPRAZOLE 40 MG/10 ML VIAL IV SCH (09:47)
[2018-11-16] MEDS: FUROSEMIDE 40 MG/4 ML VIAL IV SCH (09:47)
[2018-11-16] MEDS: ENOXAPARIN SOD 40 MG/0.4 ML SYRINGE SC SCH (09:47)
[2018-11-16] MEDS: PROPOFOL 100 ML IV SCH (11:23)
[2018-11-16] MEDS ORDERED: SODIUM CHLORIDE 0.9% 1,000 ML IV ONE (12:30)
[2018-11-16] MEDS: SODIUM CHLORIDE 0.9% 1,000 ML IV SCH ×2 (12:30→21:56)
[2018-11-16] MEDS: MIDAZOLAM DRIP 50 mg/50mL 50 ML IV SCH (18:59)
[2018-11-16] MEDS ORDERED: TPN PER PHARMACY IV NR ×11 (20:00)
[2018-11-17] VITALS (69 sets, daily range): BP systolic 90–124; BP diastolic 41–67
[2018-11-17] MEDS: ALBUTEROL SULF 2.5 MG/0.5ML(0.5%) NEB SOLN NEB SCH ×4 (00:38→19:14)
[2018-11-17] MEDS: IPRATROPIUM BROM 0.5 MG/2.5ML INH SOL NEB SCH ×4 (00:38→19:14)
[2018-11-17] MEDS: VANCOMYCIN 1GM/250ML 250 ML IV SCH ×2 (02:00→14:23)
[2018-11-17 04:15] LABS: Eosinophils # (auto) 0.3 uL; Monocytes # (auto) 1.2 uL; Neutrophils # (auto) 13.6 uL
[2018-11-17 04:17] LABS: Basophils # (auto) 0.1 uL; Basophils % (auto) 0.4 % (0.0-2.0); Hematocrit 25.5 % (41.0-53.0); Hemoglobin 8.2 g/dL (13.5-17.5); Lymphocytes # (auto) 1.2 uL; Lymphocytes % (auto) 7.1 % (10.0-50.0); Mean Corpuscular Hemoglobin 26.6 pg (28.0-32.0); Mean Corpuscular Hgb Conc. 32.3 g/dL (32.0-36.0); Mean Corpuscular Volume 82.3 fL (80.0-100.0); Monocytes % (auto) 7.3 % (0.0-12.0); Neutrophils % (auto) 83.2 % (37.0-80.0); Platelet Count (auto) 345 10^3/uL (140-450); Red Cell Distribution Width 15.5 % (11.8-14.3); White Blood Cell 16.4 10^3/uL (4.4-10.8)
[2018-11-17 04:29] LABS: Albumin 1.4 g/dL (3.4-5.0); BUN/Creatinine Ratio 32.7; Calcium 6.8 mg/dL (8.5-10.1); Potassium 3.8 mmol/L (3.5-5.1)
[2018-11-17 04:30] LABS: Magnesium 1.8 mg/dL (1.6-2.6); Phosphorus 3.2 mg/dL (2.5-4.90)
[2018-11-17 04:32] LABS: Bilirubin, Total 0.4 mg/dL (0.2-1.0); Total Protein 4.2 g/dL (6.4-8.2)
[2018-11-17] MEDS: metroNIDAZOLE 500MG/100ML 100 ML IV SCH ×4 (06:00→18:27)
[2018-11-17] MEDS: ACCU-CHEK COMFORT CURVE STRIP VI SCH ×2 (06:00)
[2018-11-17] MEDS: InsuLIN REG 1unit/0.01ml Soln (100units/ml) SC SCH ×2 (06:00)
[2018-11-17] MEDS: AZTREONAM 1GM INJ 1 GM in D5W 5% 50 ML IV SCH ×3 (06:00→22:00)
[2018-11-17] MEDS: VANCOMYCIN HCL 500MG/5ML ORAL SOL GT SCH ×4 (06:00→18:27)
[2018-11-17] MEDS: NOREPINEPHRINE 8 MG/250ML KIT 250 ML IV SCH (08:00)
[2018-11-17] MEDS: SODIUM CHLORIDE 0.9% 1,000 ML IV SCH (08:30)
[2018-11-17] MEDS: PANTOPRAZOLE 40 MG/10 ML VIAL IV SCH (09:45)
[2018-11-17] MEDS: FUROSEMIDE 40 MG/4 ML VIAL IV SCH (09:49)
[2018-11-17] MEDS: PROPOFOL 100 ML IV SCH (09:51)
[2018-11-17] MEDS: ENOXAPARIN SOD 40 MG/0.4 ML SYRINGE SC SCH (09:51)
[2018-11-17] MEDS: MORPHINE SULF INJ 2 MG/ML SYRINGE 1ML IV PRN (14:24)
[2018-11-18] VITALS (15 sets, daily range): BP systolic 92–113; BP diastolic 51–67
[2018-11-18] MEDS: metroNIDAZOLE 500MG/100ML 100 ML IV SCH ×2 (00:21→06:08)
[2018-11-18] MEDS: IPRATROPIUM BROM 0.5 MG/2.5ML INH SOL NEB SCH ×3 (00:28→11:50)
[2018-11-18] MEDS: ALBUTEROL SULF 2.5 MG/0.5ML(0.5%) NEB SOLN NEB SCH ×3 (00:28→11:50)
[2018-11-18] MEDS: VANCOMYCIN 1GM/250ML 250 ML IV SCH (02:00)
[2018-11-18] MEDS: VANCOMYCIN HCL 500MG/5ML ORAL SOL GT SCH ×2 (06:07)
[2018-11-18] MEDS: AZTREONAM 1GM INJ 1 GM in D5W 5% 50 ML IV SCH (06:08)
[2018-11-18 08:32] LABS: Basophils # (auto) 0.1 uL; Basophils % (auto) 0.4 % (0.0-2.0); Eosinophils # (auto) 0.2 uL; Lymphocytes % (auto) 5.5 % (10.0-50.0); Monocytes # (auto) 1.1 uL; Monocytes % (auto) 7.4 % (0.0-12.0)
[2018-11-18 08:39] LABS: Eosinophils % (auto) 1.5 % (0.0-7.0); Lymphocytes # (auto) 0.8 uL; Mean Corpuscular Hemoglobin 26.4 pg (28.0-32.0); Mean Corpuscular Hgb Conc. 31.9 g/dL (32.0-36.0); Mean Corpuscular Volume 82.6 fL (80.0-100.0); Neutrophils % (auto) 85.2 % (37.0-80.0); Platelet Count (auto) 389 10^3/uL (140-450); Red Cell Distribution Width 15.2 % (11.8-14.3); White Blood Cell 15.3 10^3/uL (4.4-10.8)
[2018-11-18 08:52] LABS: Albumin 1.5 g/dL (3.4-5.0); BUN/Creatinine Ratio 30.6; Calcium 7.3 mg/dL (8.5-10.1); Potassium 3.3 mmol/L (3.5-5.1)
[2018-11-18 08:55] LABS: Bilirubin, Total 0.3 mg/dL (0.2-1.0)
[2018-11-18] MEDS: PANTOPRAZOLE 40 MG/10 ML VIAL IV SCH (09:31)
[2018-11-18] MEDS: ENOXAPARIN SOD 40 MG/0.4 ML SYRINGE SC SCH (09:32)
[2018-11-18] MEDS: FUROSEMIDE 40 MG/4 ML VIAL IV SCH (09:33)
== END 2018-11-18 16:21 | disposition hospice, home (50) | DRG 870 ==
LOC: EDBD 12:48 → ER 12:48 → TELE 17:05 → ICU WEST 11-10 20:50
PROVIDERS: ADMIT Internal Medicine; ATTEND Internal Medicine
PROC: 5A1955Z Respiratory Ventilation, Greater than 96 Consecutive Hours (ICD-10-PCS; principal; 2018-11-08)
PROC: 0BH17EZ Insertion of Endotracheal Airway into Trachea, Via Natural or Artificial Opening (ICD-10-PCS; 2018-11-08)
PROC: 4A00X4Z Measurement of Central Nervous Electrical Activity, External Approach (ICD-10-PCS; 2018-11-12)
PROC: 02HV33Z Insertion of Infusion Device into Superior Vena Cava, Percutaneous Approach (ICD-10-PCS; 2018-11-12)
DX: A41.9 Sepsis, unspecified organism (principal); J96.21 Acute and chronic respiratory failure with hypoxia; R65.21 Severe sepsis with septic shock; G93.41 Metabolic encephalopathy; J18.9 Pneumonia, unspecified organism; G93.1 Anoxic brain damage, not elsewhere classified; A04.72 Enterocolitis due to Clostridium difficile, not specified as recurrent; E87.2 Acidosis; L03.115 Cellulitis of right lower limb; J98.11 Atelectasis; I11.0 Hypertensive heart disease with heart failure; E11.9 Type 2 diabetes mellitus without complications; J44.9 Chronic obstructive pulmonary disease, unspecified; K21.9 Gastro-esophageal reflux disease without esophagitis; D50.8 Other iron deficiency anemias; E87.6 Hypokalemia; I50.9 Heart failure, unspecified; Z96.651 Presence of right artificial knee joint; E78.00 Pure hypercholesterolemia, unspecified; M17.0 Bilateral primary osteoarthritis of knee; Z88.0 Allergy status to penicillin
CPT/HCPCS: 31500; 36415; 36600; 51702; 70450; 71045; 71275; 73700; 74177; 80048; 80053; 80202; 81001; 82040; 82140; 82805; 82962; 83605; 83735; 83880; 84100; 84132; 84478; 84484; 85007; 85025; 85027; 85379; 85610; 85730; 87040; 87070; 87081; 87086; 87205; 87493; 92610; 93005; 93306; 93971; 94002; 94003; 94640; 95819; 96374; 96375; 99291; A4618; A6257; C9113; G0378; J0330; J0696; J1815; J1956; J2001; J2250; J3480; J3490; J7060; J7131; Q9956

== ENCOUNTER 2018-11-20 22:00 | Emergency (ER) | payer OTHER ==
[~2018-11-20] VITALS: Ht 180.3 cm; Wt 102.1 kg
[2018-11-21 04:24] LABS: Urine Bacteria MOD /hpf (None Seen); Urine Blood 1+ /uL (Negative); Urine Mucus FEW (None Seen); Urine Specific Gravity 1.022 (1.001-1.035); Urine WBC 246 /hpf (0 - 3)
[2018-11-21 04:28] LABS: Urine Budding Yeast Many /hpf (None Seen)
[2018-11-21] MEDS ORDERED: SODIUM CHLORIDE 0.9% 500 ML IV ONE (05:00)
[2018-11-21] MEDS ORDERED: cefTRIAXone 1GM/50ML D5W 50 ML IV ONE (06:45)
[2018-11-21 07:50] LABS: Basophils # (auto) 0.1 uL; Basophils % (auto) 0.6 % (0.0-2.0); Eosinophils # (auto) 0.2 uL; Eosinophils % (auto) 1.6 % (0.0-7.0); Hematocrit 29.3 % (41.0-53.0); Hemoglobin 9.5 g/dL (13.5-17.5); Lymphocytes # (auto) 1.1 uL; Lymphocytes % (auto) 11.3 % (10.0-50.0); Mean Corpuscular Hgb Conc. 32.3 g/dL (32.0-36.0); Mean Corpuscular Volume 83.4 fL (80.0-100.0); Monocytes # (auto) 0.9 uL; Monocytes % (auto) 9.1 % (0.0-12.0); Neutrophils # (auto) 7.4 uL; Neutrophils % (auto) 77.4 % (37.0-80.0); Platelet Count (auto) 490 10^3/uL (140-450); Red Blood Cells 3.51 10^6/uL (4.5-5.90); White Blood Cell 9.6 10^3/uL (4.4-10.8)
[2018-11-21 08:10] LABS: Albumin 1.7 g/dL (3.4-5.0); Calcium 7.3 mg/dL (8.5-10.1)
[2018-11-21 08:14] LABS: Bilirubin, Total 0.3 mg/dL (0.2-1.0); Total Protein 5.4 g/dL (6.4-8.2)
[2018-11-21 08:20] LABS: Potassium 2.9 mmol/L (3.5-5.1)
[2018-11-21] MEDS ORDERED: POTASSIUM CHL 10% (20 MEQ/15ML) 15ml ORAL SOLN PO ONE (09:15)
[2018-11-21] MEDS ORDERED: POTASSIUM CHL 20MEQ/100ML 100 ML IV SCH (09:15)
[2018-11-21] MEDS ORDERED: SOD CHL 0.9%/ KCL 40MEQ 1,000 ML IV ONE (10:00)
[2018-11-21] MEDS ORDERED: POTASSIUM CHL 20MEQ/100ML 100 ML IV ONE (11:45)
[2018-11-21 13:30] VITALS: BP 126/75
== END 2018-11-21 14:40 | disposition home or self-care (01) ==
LOC: EDBD 22:00 → ER 22:04
DX: N39.0 Urinary tract infection, site not specified (principal); E87.6 Hypokalemia; H90.5 Unspecified sensorineural hearing loss; J44.9 Chronic obstructive pulmonary disease, unspecified; I11.0 Hypertensive heart disease with heart failure; I50.9 Heart failure, unspecified; Z88.0 Allergy status to penicillin
CPT/HCPCS: 36415; 70450; 74176; 80053; 81001; 83605; 83880; 84484; 85025; 87040; 87086; 96365; 96366; 96368; 99284; J0696; J3480; J7030